=== PATIENT | female | born 1945 | race Caucasian/White ===

== ENCOUNTER → 2016-11-20 | Outpatient (CLI) | payer MEDICARE, BC ==
[2016-11-20 18:36] LABS: HIV 1/2 Antibodies Non-Reactive; HIV-1p24 Antigen Non-Reactive
== END ==
LOC: COL.LAB 17:31
PROVIDERS: Orthopaedic Surgery
DX: Z01.812 Encounter for preprocedural laboratory examination (principal); M25.862 Other specified joint disorders, left knee

== ENCOUNTER → 2017-02-13 | Outpatient (CLI) | payer MEDICARE, BC | LOC: MC.RAD 10:23 | DX: Z12.31 Encounter for screening mammogram for malignant neoplasm of breast (principal) ==

== ENCOUNTER → 2018-03-03 | Outpatient (CLI) | payer MEDICARE, BC | LOC: MC.RAD 10:20 | DX: Z12.31 Encounter for screening mammogram for malignant neoplasm of breast (principal) ==

== ENCOUNTER → 2019-03-28 | Outpatient (CLI) | payer MEDICARE, BC | LOC: MC.RAD 08:41 | DX: Z12.31 Encounter for screening mammogram for malignant neoplasm of breast (principal) ==

== ENCOUNTER 2020-03-30 09:57 | Emergency (ER) | payer MEDICARE, BC ==
[~2020-03-30] VITALS: Ht 167.6 cm; Wt 93.2 kg
[2020-03-30 10:02] VITALS: TEMP 98.2
[2020-03-30] MEDS ORDERED: ZOCOR5 MG PO (10:08)
[2020-03-30] MEDS ORDERED: GLUCOSAMIN 500 (10:09)
[2020-03-30] MEDS ORDERED: MASON NATURAL1200 MG PO (10:09)
[2020-03-30] MEDS ORDERED: ONE-A-DAY ESSE1 EACH PO (10:09)
[2020-03-30] MEDS ORDERED: ASPIRIN 81M81 MG/TA2 PO (10:10)
[2020-03-30 10:37] LABS: BASO % 0.4 % (0.0-2.0); EOS # 0.1 (0.0-0.7); EOS % 1.3 % (0-4.0); GRAN % 65.5 % (42.2-75.2); HEMATOCRIT 42.7 % (37.0-47.0); HEMOGLOBIN 13.7 g/dl (12.5-16.0); LYMPH # 2.5 (1.2-3.4); LYMPH % 23.5 % (20.0-51.0); MEAN CELL VOLUME 88 fl (80.0-100.0); MEAN CORPUSCULAR HEMOGLOBIN 28 pg (27.0-31.0); MEAN CORPUSCULAR HGB CONC 32 g/dl (33.0-37.0); MEAN PLATELET VOLUME 8.8 fl (7.4-10.4); MONO % 8.9 % (1.7-9.3); PLATELET COUNT 242 K/mm3 (130-400); RED BLOOD COUNT 4.83 M/mm3 (4.10-5.30)
[2020-03-30 10:42] LABS: ALANINE AMINOTRANSFERASE 12 U/L (4-34); ALBUMIN 4.2 gm/dL (3.5-5.0); ALKALINE PHOSPHATASE 98 U/L (50-136); ANION GAP 7 mmol/L (7-16); AST,SGOT 19 U/L (15-37); BILIRUBIN,TOTAL 0.5 mg/dL (0.0-1.0); BLOOD UREA NITROGEN 16 mg/dL (7-17); CALCIUM 9.4 mg/dL (8.4-10.2); CARBON DIOXIDE 23 mmol/L (22-30); CHLORIDE 108 mmol/L (98-107); CREATININE, serum 0.83 (0.52-1.25); GLUCOSE 105 mg/dL (74-106); LIPASE 227 U/L (23-300); POTASSIUM 4.3 mmol/L (3.4-5.0); SODIUM 137 mmol/L (137-145); TOTAL PROTEIN 7.4 gm/dL (6.4-8.2)
[2020-03-30 10:54] LABS: TROPONIN-I < 0.012 ng/mL (0.000-0.035)
[2020-03-30 12:14] VITALS: BP 128/77; PULSE 58
== END 2020-03-30 12:25 | disposition left against medical advice (07) ==
LOC: COL.ER 09:57
PROVIDERS: Emergency Medicine
DX: R07.89 Other chest pain (principal); E78.5 Hyperlipidemia, unspecified; Z79.82 Long term (current) use of aspirin

== ENCOUNTER 2020-04-01 00:03 | Emergency (ER) | payer MEDICARE, BC ==
[~2020-04-01] VITALS: Ht 167.6 cm; Wt 93.2 kg
[~2020-04-01 00:03] MED LIST: ASPIRIN 81M81 MG/TA2 PO; GLUCOSAMIN 500; MASON NATURAL1200 MG PO; ONE-A-DAY ESSE1 EACH PO; ZOCOR5 MG PO
[2020-04-01 01:26] LABS: C-REACTIVE PROTEIN 5.8 mg/dL (0.0-0.9)
[2020-04-01 01:36] LABS: TROPONIN-I < 0.012 ng/mL (0.000-0.035)
[2020-04-01] MEDS ORDERED: VOLTAREN 75 DR75 MG PO (02:04)
[2020-04-01 02:41] VITALS: BP 148/64; PULSE 76; TEMP 98.4
== END 2020-04-01 02:42 | disposition home or self-care (01) ==
LOC: COL.ER 00:03
PROVIDERS: Emergency Medicine
DX: M25.512 Pain in left shoulder (principal); E78.5 Hyperlipidemia, unspecified; Z79.82 Long term (current) use of aspirin; X50.0XXA Overexertion from strenuous movement or load, initial encounter
CPT/HCPCS: J1885; J2405; J2930; J3010

== ENCOUNTER → 2020-04-10 | Outpatient (CLI) | payer MEDICARE, BC ==
[~2020-04-10] MED LIST changes: +VOLTAREN 75 DR75 MG PO
== END ==
LOC: MC.RAD 09:59
DX: Z12.31 Encounter for screening mammogram for malignant neoplasm of breast (principal)

== ENCOUNTER → 2021-04-29 | Outpatient (CLI) | payer MEDICARE, BC | LOC: MC.RAD 14:16 | DX: Z12.31 Encounter for screening mammogram for malignant neoplasm of breast (principal) ==

== ENCOUNTER → 2022-04-30 | Outpatient (CLI) | payer MEDICARE, BC | LOC: MC.RAD 09:26 | DX: Z12.31 Encounter for screening mammogram for malignant neoplasm of breast (principal) ==

== ENCOUNTER → 2024-06-01 | Outpatient (CLI) | payer MEDICARE, BC | LOC: MC.RAD 09:14 | DX: Z12.31 Encounter for screening mammogram for malignant neoplasm of breast (principal) ==